=== PATIENT | female | born 1995 | race Caucasian/White ===

== ENCOUNTER 2019-02-01 02:23 | Observation (INO) | payer BC, MEDICAID ==
[2019-02-01] MEDS ORDERED: Bacitracin Oint 1 GM U/D Packet TOP ONE (02:32)
[2019-02-01] MEDS ORDERED: Ondansetron 4 MG/2 ML SDV IV ONE (02:32)
[2019-02-01] MEDS ORDERED: Sodium Chloride 0.9% 1,000 ML IV ONE (02:32)
[2019-02-01] MEDS ORDERED: LORazepam 2 MG/ML Syringe ONE (02:32)
[2019-02-01] MEDS ORDERED: LORazepam 2 MG/ML Syringe IVPUSH ONE (02:32)
[2019-02-01] MEDS ORDERED: Lidocaine 1% 30 ML SDV INJECT ONE (02:32)
[2019-02-01] MEDS: Sodium Chloride 0.9% 10 ML Syringe FLUSH PRN ×2 (02:38→05:45)
--- NOTE | 2019-02-01 02:42 | EDM.PDOC ---
ED HPI GENERAL MEDICAL PROBLEM - General Source of Information: Reports: Patient, EMS, EMS Notes Reviewed, Police, RN, RN Notes Reviewed History Limitations: Reports: Intoxication - History of Present Illness Onset: Today, Sudden Duration: Constant Location: Reports: Head, Face Quality: Reports: Sharp, Stabbing Severity: Severe Improves with: Reports: None Worsens with: Reports: None Head Pain Score (Numeric/FACES): 10 <Amber Darnell - Last Filed: 02/01/19 04:36> <Jerry Simms - Last Filed: 02/01/19 08:24> - General Stated Complaint: DRUNK AND NEEDS STITCHES IN HER HEAD Time Seen by Provider: 02/01/19 02:25 - History of Present Illness INITIAL COMMENTS - FREE TEXT/NARRATIVE: Pt to ER per EMS with laceration to the head above the vertical above the left eyebrow, about 2cm in length. Pts mother states that the patients brother was called by the bar to come and pick his sister up as she was intoxicated and "fell on her face". Unsure of LOC. Patient is crying and hysterical upon arrival. EMS states the patient ran away from them once, then cooperated getting into the ambulance. Patient states her head hurts. Rates pain 50/10. Patient is crying and asking for her dog. She states she is unsure how much she has had to drink tonight. Patient states she has difficulty with anxiety. Patient and mother state they think her tetanus is up to date. Patient states she believes it was given within the past year. (Amber Darnell) - Related Data Allergies Allergy/AdvReac Type Severity Reaction Status Date / Time No Known Allergies Allergy Verified 02/01/19 02:58 Home Meds: Home Meds . [No Known Home Meds] 11/20/15 [History] Past Medical History - Past Health History Medical/Surgical History: Denies Medical/Surgical History <Amber Darnell - Last Filed: 02/01/19 04:36> ED ROS GENERAL - Review of Systems Review Of Systems: ROS reveals no pertinent complaints other than HPI. <Amber Darnell - Last Filed: 02/01/19 04:36> ED EXAM, HEAD INJURY - Physical Exam Exam: See Below Exam Limited By: Intoxication General Appearance: Anxious, Moderate Distress Head: Facial Abrasions, Facial Lacerations, Facial Swelling, Facial Tenderness Nexus Criteria: Evidence of Intoxication, Painful Distraction Injuries. No: Posterior, Midline Cervical Tenderness, Altered Level of Consciousness, Focal Neurological Deficit Eyes: Bilateral Eye: Conjunctival Injection, PERRL (4 sluggish) Ears: Normal External Exam, Hearing Grossly Normal Nose: Normal Inspection, Nasal Tenderness Throat/Mouth: Normal Inspection, Normal Lips, Normal Teeth, Normal Gums, Normal Oropharynx, Normal Voice, No Airway Compromise Neck: Non-Tender, Full Range of Motion, Normal Alignment, Normal Inspection Respiratory: No Respiratory Distress, Lungs Clear, Normal Breath Sounds, No Accessory Muscle Use, Chest Non-Tender Cardiovascular: Normal Peripheral Pulses, Regular Rate, Rhythm, No Edema, No Gallop, No JVD, No Murmur, No Rub GI/Abdominal Exam: Normal Bowel Sounds, Soft, Non-Tender (Female) Exam: Deferred Rectal (Female) Exam: Deferred Back Exam: Full Range of Motion, Normal Inspection, NT Extremities: Normal Inspection, Normal Range of Motion, Non-Tender, No Pedal Edema, Normal Capillary Refill Neurologic: No Motor/Sensory Deficits, Alert, Other (Very anxious, hyperventilating at times) Skin: Other (2cm vertical laceration above left eyebrow.) - [place] Coma Score Best Eye Response (Conrad): (4) Open Spontaneously Best Verbal Response ([place]): (4) Confused Conversation Best Motor Response ([place]): (6) Obeys Commands Conrad Total: 14 <DarnellAmber Last Filed: 02/01/19 04:36> ED LACERATION/WOUND & ADELIA PROC - Laceration/Wound Repair Left Upper Forehead Lac/wound length in cm: 2 Appearance: Subcutaneous Distal NVT: Neuro & Vascular Intact Anesthetic Type: Local Local Anesthesia - Lidocaine (Xylocaine): 1% Plain Local Anesthetic Volume: 5cc Skin Prep: Chlorhexidine (Hibiciens) Exploration/Debridement/Repair: Wound Explored, In a Bloodless Field, Foreign Material Removed Closed with: Sutures Suture Size: 4-0 # of Sutures: 5 Suture Type: Nylon, Interrupted Drain Placement: No Sterile Dressing Applied: Provider Tetanus Status Addressed: Yes Complications: No <Amber Darnell - Last Filed: 02/01/19 04:36> Course <Amber Darnell - Last Filed: 02/01/19 04:36> <Jerry Simms - Last Filed: 02/01/19 08:24> - Vital Signs Last Recorded V/S: Last Vital Signs Temp 36.8 C 02/01/19 02:23 Pulse 145 H 02/01/19 02:23 Resp BP 128/91 H 02/01/19 02:23 Pulse Ox 99 02/01/19 02:23 - Orders/Labs/Meds Orders: Active Orders 24 hr Category Date Time Status Peripheral IV Care [RC] . DIRECTED Care 02/01/19 02:32 Active Sodium Chloride 0.9% [Normal Saline] 1,000 ml Med 02/01/19 06:30 Active IV ASDIRECTED Sodium Chloride 0.9% [Saline Flush] Med 02/01/19 02:32 Active 10 ml FLUSH ASDIRECTED PRN Peripheral IV Insertion Adult [OM.PC] Stat Oth 02/01/19 02:30 Ordered Medication Orders Sodium Chloride (Normal Saline) 1,000 mls @ 999 mls/hr IV ASDIRECTED ABUNDIO Last Admin: 02/01/19 06:10 Dose: 999 mls/hr Sodium Chloride (Saline Flush) 10 ml FLUSH ASDIRECTED PRN PRN Reason: Keep Vein Open Last Admin: 02/01/19 05:45 Dose: 10 ml Admin: 02/01/19 02:38 Dose: 10 ml Labs: Laboratory Tests 02/01/19 02/01/19 02/01/19 Range/Units 02:41 02:41 05:40 WBC 12.0 H (5.0-10.0) 10^3/uL RBC 4.98 (4.2-5.4) 10^6/uL Hgb 15.1 (12.0-16.0) g/dL Hct 43.3 (37.0-47.0) % MCV 86.9 (80-100) fL MCH 30.3 (27.0-34.0) pg MCHC 34.9 (33.0-35.0) g/dL Plt Count 329 (150-450) 10^3/uL Neut % (Auto) 61.1 (42.2-75.2) % Lymph % (Auto) 29.8 (20.5-50.1) % [place] % (Auto) 7.8 (2-8) % Eos % (Auto) 0.8 L (1.0-3.0) % Baso % (Auto) 0.5 (0.0-1.0) % Sodium 145 (135-145) mmol/L Potassium 3.1 L (3.6-5.0) mmol/L Chloride 110 (101-111) mmol/L Carbon Dioxide 21.0 (21.0-31.0) mmol/L Anion Gap 17.1 BUN 5 L (7-18) mg/dL Creatinine 0.6 (0.6-1.3) mg/dL Est Cr Clr Drug Dosing 132.34 mL/min Estimated GFR (MDRD) > 60 BUN/Creatinine Ratio 8.33 Glucose 82 (74-105) mg/dL Calcium 9.5 (8.4-10.2) mg/dl Total Bilirubin 0.5 (0.2-1.0) mg/dL AST 23 (10-42) IU/L ALT 21 (10-60) IU/L Alkaline Phosphatase 65 (42-121) IU/L Total Protein 7.2 (6.7-8.2) g/dl Albumin 4.5 (3.2-5.5) g/dl Globulin 2.7 Albumin/Globulin Ratio 1.67 Urine Color (YELLOW) Urine Appearance (CLEAR) Urine pH (5.0-9.0) Ur Specific [place] (1.005-1.030) Urine Protein (NEGATIVE) Urine Glucose (UA) (NEGATIVE) Urine Ketones (NEGATIVE) Urine Occult Blood (NEGATIVE) Urine Nitrite (NEGATIVE) Urine Bilirubin (NEGATIVE) Urine Urobilinogen (0.2-1.0) mg/dL Ur Leukocyte Esterase (NEGATIVE) Urine RBC /HPF Urine WBC (0-5/HPF) /HPF Ur Epithelial Cells /HPF Urine Bacteria (0-FEW/HPF) /HPF Urine Mucus /LPF Urinalysis Comment Urine HCG, Qual Negative Urine Opiates Screen (NEGATIVE) Ur Oxycodone Screen (NEGATIVE) Urine Methadone Screen (NEGATIVE) Ur Barbiturates Screen (NEGATIVE) U Tricyclic Antidepress (NEGATIVE) Ur Phencyclidine Scrn (NEGATIVE) Ur Amphetamine Screen (NEGATIVE) U Methamphetamines Scrn (NEGATIVE) Urine MDMA Screen (NEGATIVE) U Benzodiazepines Scrn (NEGATIVE) Urine Cocaine Screen (NEGATIVE) U Marijuana (THC) Screen (NEGATIVE) Ethyl Alcohol 282 mg/dL 02/01/19 02/01/19 Range/Units 05:40 05:40 WBC (5.0-10.0) 10^3/uL RBC (4.2-5.4) 10^6/uL Hgb (12.0-16.0) g/dL Hct (37.0-47.0) % MCV (80-100) fL MCH (27.0-34.0) pg MCHC (33.0-35.0) g/dL Plt Count (150-450) 10^3/uL Neut % (Auto) (42.2-75.2) % Lymph % (Auto) (20.5-50.1) % [place] % (Auto) (2-8) % Eos % (Auto) (1.0-3.0) % Baso % (Auto) (0.0-1.0) % Sodium (135-145) mmol/L Potassium (3.6-5.0) mmol/L Chloride (101-111) mmol/L Carbon Dioxide (21.0-31.0) mmol/L Anion Gap BUN (7-18) mg/dL Creatinine (0.6-1.3) mg/dL Est Cr Clr Drug Dosing mL/min Estimated GFR (MDRD) BUN/Creatinine Ratio Glucose (74-105) mg/dL Calcium (8.4-10.2) mg/dl Total Bilirubin (0.2-1.0) mg/dL AST (10-42) IU/L ALT (10-60) IU/L Alkaline Phosphatase (42-121) IU/L Total Protein (6.7-8.2) g/dl Albumin (3.2-5.5) g/dl Globulin Albumin/Globulin Ratio Urine Color Light yellow (YELLOW) Urine Appearance Slightly cloudy (CLEAR) Urine pH 5.5 (5.0-9.0) Ur Specific [place] <= 1.005 (1.005-1.030) Urine Protein Negative (NEGATIVE) Urine Glucose (UA) Negative (NEGATIVE) Urine Ketones Negative (NEGATIVE) Urine Occult Blood Trace-intact H (NEGATIVE) Urine Nitrite Negative (NEGATIVE) Urine Bilirubin Negative (NEGATIVE) Urine Urobilinogen 0.2 (0.2-1.0) mg/dL Ur Leukocyte Esterase Negative (NEGATIVE) Urine RBC 0-5 /HPF Urine WBC 0-5 (0-5/HPF) /HPF Ur Epithelial Cells Moderate H /HPF Urine Bacteria Many H (0-FEW/HPF) /HPF Urine Mucus Moderate H /LPF Urinalysis Comment Urine HCG, Qual Urine Opiates Screen Negative (NEGATIVE) Ur Oxycodone Screen Negative (NEGATIVE) Urine Methadone Screen Negative (NEGATIVE) Ur Barbiturates Screen Negative (NEGATIVE) U Tricyclic Antidepress Negative (NEGATIVE) Ur Phencyclidine Scrn Negative (NEGATIVE) Ur Amphetamine Screen Negative (NEGATIVE) U Methamphetamines Scrn Negative (NEGATIVE) Urine MDMA Screen Negative (NEGATIVE) U Benzodiazepines Scrn Positive H (NEGATIVE) Urine Cocaine Screen Negative (NEGATIVE) U Marijuana (THC) Screen Negative (NEGATIVE) Ethyl Alcohol mg/dL Meds: Medications Generic Name Dose Route Start Last Admin Trade Name Freq PRN Reason Stop Dose Admin Sodium Chloride 1,000 mls @ 999 mls/hr 02/01/19 06:30 02/01/19 06:10 Normal Saline IV 999 mls/hr ASDIRECTED ABUNDIO Administration Sodium Chloride 10 ml 02/01/19 02:32 02/01/19 05:45 Saline Flush FLUSH 10 ml ASDIRECTED PRN Administration Keep Vein Open Discontinued Medications Generic Name Dose Route Start Last Admin Trade Name Freq PRN Reason Stop Dose Admin Acetaminophen 650 mg 02/01/19 07:26 02/01/19 07:32 Tylenol PO 02/01/19 07:27 650 mg NOW ONE Administration Bacitracin 1 dose 02/01/19 02:32 02/01/19 02:40 Bacitracin Oint 1 Gm TOP 02/01/19 02:33 1 dose ONETIME ONE Administration Butorphanol Tartrate 2 mg 02/01/19 05:40 02/01/19 05:45 Stadol IVPUSH 02/01/19 05:41 2 mg ONETIME ONE Administration Sodium Chloride 1,000 mls @ 999 mls/hr 02/01/19 02:32 02/01/19 02:37 Normal Saline IV 02/01/19 03:32 999 mls/hr .BOLUS ONE Administration Lidocaine HCl 30 ml 02/01/19 02:32 02/01/19 02:40 Xylocaine-Mpf 1% INJECT 02/01/19 02:33 30 ml ONETIME ONE Administration Lorazepam 1 mg 02/01/19 02:32 02/01/19 02:37 Ativan IVPUSH 02/01/19 02:33 1 mg ONETIME ONE Administration Lorazepam Confirm 02/01/19 02:32 02/01/19 02:38 Ativan Administered 02/01/19 02:33 Not Given Dose 2 mg .ROUTE .STK-MED ONE Ondansetron HCl 4 mg 02/01/19 02:32 02/01/19 02:39 Zofran IV 02/01/19 02:33 4 mg ONETIME ONE Administration - Radiology Interpretation Free Text/Narrative:: Head CT: FINDINGS: Brain: NoOr evidence for acute transcortical infarct. No mass effect or midline shift. No extra-axial collection. No acute intracranial hemorrhage. Basal cisterns are patent. Ventricles: Normal. No ventriculomegaly. Bones/joints: No acute calvarial fracture. Sinuses: Visualized sinuses are unremarkable. No acute sinusitis. Mastoid air cells: Visualized mastoid air cells are unremarkable. No mastoid effusion. Soft tissues: Left forehead soft tissue swelling with laceration. No radiopaque foreign body. IMPRESSION: 1. Left forehead soft tissue swelling with laceration. No radiopaque foreign body. No acute calvarial fracture. 2. No acute intracranial hemorrhage or mass effect. Thank you for allowing us to participate in the care of your patient. Dictated and Authenticated by: Reinaldo Todd MD 02/01/2019 4:31 AM Central Time ([place] & [place]) See rad report (Amber Darnell) - Re-Assessments/Exams Free Text/Narrative Re-Assessment/Exam: 02/01/19 08:15 Patient care was taken over at shift change. A call was placed to Dr. Gonzalez regarding the patient's history, examination, lab and CT results while the patient was in the ED. Dr. Gonzalez advised to continue to monitor the patient, but avoid medications with sedation side effects. Dr. Starr accepted the patient for observation at [facility] in [place]. (Jerry Simms) Departure - Departure Time of Disposition: 04:37 Condition: Fair - Discharge Information *PRESCRIPTION DRUG MONITORING PROGRAM REVIEWED*: No *COPY OF PRESCRIPTION DRUG MONITORING REPORT IN PATIENT JASBIR: No <Amber Darnell - Last Filed: 02/01/19 04:36> - Departure Time of Disposition: 08:20 <Jerry Simms - Last Filed: 02/01/19 08:24> - Departure Clinical Impression: Concussion with less than 1 hour loss of consciousness, Laceration Contusion Qualifiers: Encounter type: initial encounter Contusion area: head Contusion of head detail : other part of head Qualified Code(s): S00.83XA - Contusion of other part of head, initial encounter Alcohol intoxication Qualifiers: Complication of substance-induced condition: with unspecified complication Qualified Code(s): F10.929 - Alcohol use, unspecified with intoxication, unspecified - Discharge Information Instructions: Concussion, Adult, [id number], Post-Concussion Syndrome, Easy- to-Read, Facial or Scalp Contusion, [id number], Alcohol Intoxication, Easy-to- Read, Head Injury, Adult, [id number], Laceration Care, Adult, [id number], Stitches, Danilo, or Adhesive Wound Closure, [id number] Forms: ED Department Discharge Additional Instructions: Keep area clean and dry May shower, pat dry May use Tylenol and/or ibuprofen as directed for headache/pain Return to the clinic in 7-10 days to have sutures removed Follow up with your primary care facility if any further problems. Care Plan Goals: Discussed the patient's history, examination, lab, CT and treatments with Dr. Starr. Dr. Starr accepted the patient for continued evaluation and management.
[2019-02-01 03:07] LABS: ANION GAP 17.1; CHLORIDE,CL 110 mmol/L (101-111); SODIUM,NA 145 mmol/L (135-145)
[2019-02-01] MEDS ORDERED: Butorphanol 2 MG/ML SDV IVPUSH ONE (05:40)
[2019-02-01] MEDS ORDERED: Sodium Chloride 0.9% 1,000 ML IV SCH (06:30)
[2019-02-01] MEDS ORDERED: Acetaminophen 325 MG Tab PO ONE (07:26)
[2019-02-01] MEDS ORDERED: Promethazine 25 MG/ML SDV IM PRN (09:15)
[2019-02-01] MEDS ORDERED: Promethazine 25 MG Tab PO PRN (09:15)
[2019-02-01] MEDS ORDERED: Ondansetron 4 MG/2 ML SDV IVPUSH PRN (09:15)
[2019-02-01] MEDS ORDERED: Ondansetron 4 MG Tab.DIS PO PRN (09:15)
[2019-02-01] MEDS ORDERED: Acetaminophen 325 MG Tab PO PRN (09:15)
[2019-02-01] MEDS ORDERED: LORazepam 1 MG Tab PO PRN (09:44)
--- NOTE | 2019-02-01 09:57 | PCM.HP ---
H&P History of Present Illness - General Date of Service: 02/01/19 Admit Problem/Dx: Admission Diagnosis/Problem Admission Diagnosis/Problem Weakness of lower extremity Source of Information: Patient, Other (Patient's ex ) History Limitations: Reports: Altered Mental Status - History of Present Illness Initial Comments - Free Text/Narative: Dottie Rajput is a 23 y.o female with history of tobacco dependence and bilateral ovarian cysts as well as alcohol abuse who was brought into the ED by family due to concerns of head laceration / fall. 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 Was off yesterday and had a pitcher of tea, which has 3 drinks of alcohol. Also reports that subsequently she went to another bar where she drank a mix of white, blue, and red whiskey mixed with sprite. She reports that she has no recollection of subsequent events until she noticed she was in the ED. Per ED provider, bar called patient's brother that she had fallen and hit her head. Brother took patient home and mother called EMS and patient was brought to the ED. In the ED, head CT was negative. Patient was given ativan, zofran, tylenol, and Stadol. Patient was noted to be weak and could not stand. Her K was 3.1. WBC was 12. EtOH level was 282. Patient reports that she got about 2 weeks ago and her got to keep their apartment and all the furnishings. She is living with her mother and cousins and there is so much noise in the house that she is unable to get enough sleep. 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 Ex- reports that they got because patient drinks too much. Does not know how many times a week she drinks. Patient reports 10/10 throbbing headache, anxiety, and shakes. She denies any other symptoms. Head Pain Score (Numeric/FACES): 10 - Related Data Allergies/Adverse Reactions: Allergies Allergy/AdvReac Type Severity Reaction Status Date / Time No Known Allergies Allergy Verified 02/01/19 08:30 Home Medications: Home Meds Ibuprofen 600 mg PO Q6HR PRN 02/01/19 [History] busPIRone [Buspar] 15 mg PO BID 02/01/19 [History] Past Medical History - Past Health History Medical/Surgical History: Denies Medical/Surgical History HEENT History: Reports: None Cardiovascular History: Reports: None Respiratory History: Reports: None Gastrointestinal History: Reports: None Genitourinary History: Reports: None Other OB/BYN History: LMP Middle of January, date unknown Musculoskeletal History: Reports: None Neurological History: Reports: None Psychiatric History: Reports: Anxiety Other Psychiatric History: states she takes a medication for anxiety but does not know what it is, mom with her does not know what the med is either. Endocrine/Metabolic History: Reports: None Hematologic History: Reports: None Immunologic History: Reports: None Oncologic (Cancer) History: Reports: None - Past Surgical History Female Surgical History: Reports: None Social & Family History - Tobacco Use Smoking Status *Q: Unknown Ever Smoked - Recreational Drug Use Recreational Drug Use: No H&P Review of Systems - Review of Systems: Review Of Systems: ROS reveals no pertinent complaints other than HPI. Free Text/Narrative: As per HPI otherwise 14 point ROS negative. Exam - Exam Exam: See Below - Vital Signs Vital Signs: Last Vital Signs Temp 97.7 F 02/01/19 08:25 Pulse 111 H 02/01/19 08:25 Resp 16 02/01/19 08:25 BP 108/75 02/01/19 08:25 Pulse Ox 100 02/01/19 09:15 Weight: 164 lb 6.4 oz - Exam General: Alert, Oriented HEENT: Conjunctiva Clear, EOMI, Hearing Intact, Mucosa Moist & [place], Other ( Laceration on left forehead with sutures in place. ) Neck: Supple, Trachea Midline Lungs: Clear to Auscultation, Normal Respiratory Effort Cardiovascular: Regular Rhythm, Tachycardia GI/Abdominal Exam: Normal Bowel Sounds, Soft, Non-Tender, No Distention Back Exam: Normal Inspection, Full Range of Motion Extremities: Normal Inspection, Normal Range of Motion Peripheral Pulses: 2+: Radial (L), Radial (R), Dorsalis Pedis (L), Dorsalis Pedis (R) Skin: Warm, Dry, Intact Neurological: Cranial Nerves Intact, Hyperreflexia Neuro Extensive - Mental Status: Alert, Oriented x3, Normal Cognition Neuro Extensive - Motor, Sensory, Reflexes: CN II-XII Intact DTR: 3+: Bicep (L), Bicep (R), Tricep (L), Tricep (R), Patella (L), Patella (R) , Achilles (L), Achilles (R) Psychiatric: Alert, Anxious - Patient Data Lab Results Last 24 hrs: Laboratory Results - last 24 hr 02/01/19 02/01/19 02/01/19 Range/Units 02:41 02:41 05:40 WBC 12.0 H (5.0-10.0) 10^3/uL RBC 4.98 (4.2-5.4) 10^6/uL Hgb 15.1 (12.0-16.0) g/dL Hct 43.3 (37.0-47.0) % MCV 86.9 (80-100) fL MCH 30.3 (27.0-34.0) pg MCHC 34.9 (33.0-35.0) g/dL Plt Count 329 (150-450) 10^3/uL Neut % (Auto) 61.1 (42.2-75.2) % Lymph % (Auto) 29.8 (20.5-50.1) % [place] % (Auto) 7.8 (2-8) % Eos % (Auto) 0.8 L (1.0-3.0) % Baso % (Auto) 0.5 (0.0-1.0) % Sodium 145 (135-145) mmol/L Potassium 3.1 L (3.6-5.0) mmol/L Chloride 110 (101-111) mmol/L Carbon Dioxide 21.0 (21.0-31.0) mmol/L Anion Gap 17.1 BUN 5 L (7-18) mg/dL Creatinine 0.6 (0.6-1.3) mg/dL Est Cr Clr Drug Dosing 132.34 mL/min Estimated GFR (MDRD) > 60 BUN/Creatinine Ratio 8.33 Glucose 82 (74-105) mg/dL Calcium 9.5 (8.4-10.2) mg/dl Total Bilirubin 0.5 (0.2-1.0) mg/dL AST 23 (10-42) IU/L ALT 21 (10-60) IU/L Alkaline Phosphatase 65 (42-121) IU/L Total Protein 7.2 (6.7-8.2) g/dl Albumin 4.5 (3.2-5.5) g/dl Globulin 2.7 Albumin/Globulin Ratio 1.67 Urine Color (YELLOW) Urine Appearance (CLEAR) Urine pH (5.0-9.0) Ur Specific [place] (1.005-1.030) Urine Protein (NEGATIVE) Urine Glucose (UA) (NEGATIVE) Urine Ketones (NEGATIVE) Urine Occult Blood (NEGATIVE) Urine Nitrite (NEGATIVE) Urine Bilirubin (NEGATIVE) Urine Urobilinogen (0.2-1.0) mg/dL Ur Leukocyte Esterase (NEGATIVE) Urine RBC /HPF Urine WBC (0-5/HPF) /HPF Ur Epithelial Cells /HPF Urine Bacteria (0-FEW/HPF) /HPF Urine Mucus /LPF Urinalysis Comment Urine HCG, Qual Negative Urine Opiates Screen (NEGATIVE) Ur Oxycodone Screen (NEGATIVE) Urine Methadone Screen (NEGATIVE) Ur Barbiturates Screen (NEGATIVE) U Tricyclic Antidepress (NEGATIVE) Ur Phencyclidine Scrn (NEGATIVE) Ur Amphetamine Screen (NEGATIVE) U Methamphetamines Scrn (NEGATIVE) Urine MDMA Screen (NEGATIVE) U Benzodiazepines Scrn (NEGATIVE) Urine Cocaine Screen (NEGATIVE) U Marijuana (THC) Screen (NEGATIVE) Ethyl Alcohol 282 mg/dL 02/01/19 02/01/19 Range/Units 05:40 05:40 WBC (5.0-10.0) 10^3/uL RBC (4.2-5.4) 10^6/uL Hgb (12.0-16.0) g/dL Hct (37.0-47.0) % MCV (80-100) fL MCH (27.0-34.0) pg MCHC (33.0-35.0) g/dL Plt Count (150-450) 10^3/uL Neut % (Auto) (42.2-75.2) % Lymph % (Auto) (20.5-50.1) % [place] % (Auto) (2-8) % Eos % (Auto) (1.0-3.0) % Baso % (Auto) (0.0-1.0) % Sodium (135-145) mmol/L Potassium (3.6-5.0) mmol/L Chloride (101-111) mmol/L Carbon Dioxide (21.0-31.0) mmol/L Anion Gap BUN (7-18) mg/dL Creatinine (0.6-1.3) mg/dL Est Cr Clr Drug Dosing mL/min Estimated GFR (MDRD) BUN/Creatinine Ratio Glucose (74-105) mg/dL Calcium (8.4-10.2) mg/dl Total Bilirubin (0.2-1.0) mg/dL AST (10-42) IU/L ALT (10-60) IU/L Alkaline Phosphatase (42-121) IU/L Total Protein (6.7-8.2) g/dl Albumin (3.2-5.5) g/dl Globulin Albumin/Globulin Ratio Urine Color Light yellow (YELLOW) Urine Appearance Slightly cloudy (CLEAR) Urine pH 5.5 (5.0-9.0) Ur Specific [place] <= 1.005 (1.005-1.030) Urine Protein Negative (NEGATIVE) Urine Glucose (UA) Negative (NEGATIVE) Urine Ketones Negative (NEGATIVE) Urine Occult Blood Trace-intact H (NEGATIVE) Urine Nitrite Negative (NEGATIVE) Urine Bilirubin Negative (NEGATIVE) Urine Urobilinogen 0.2 (0.2-1.0) mg/dL Ur Leukocyte Esterase Negative (NEGATIVE) Urine RBC 0-5 /HPF Urine WBC 0-5 (0-5/HPF) /HPF Ur Epithelial Cells Moderate H /HPF Urine Bacteria Many H (0-FEW/HPF) /HPF Urine Mucus Moderate H /LPF Urinalysis Comment Urine HCG, Qual Urine Opiates Screen Negative (NEGATIVE) Ur Oxycodone Screen Negative (NEGATIVE) Urine Methadone Screen Negative (NEGATIVE) Ur Barbiturates Screen Negative (NEGATIVE) U Tricyclic Antidepress Negative (NEGATIVE) Ur Phencyclidine Scrn Negative (NEGATIVE) Ur Amphetamine Screen Negative (NEGATIVE) U Methamphetamines Scrn Negative (NEGATIVE) Urine MDMA Screen Negative (NEGATIVE) U Benzodiazepines Scrn Positive H (NEGATIVE) Urine Cocaine Screen Negative (NEGATIVE) U Marijuana (THC) Screen Negative (NEGATIVE) Ethyl Alcohol mg/dL Result Diagrams: 02/01/19 02:41 02/01/19 02:41 - Problem List (1) Hypokalemia SNOMED Code(s): 88858896 ICD Code: E87.6 - HYPOKALEMIA Status: Acute Current Visit: Yes (2) Anxiety SNOMED Code(s): 78864014 ICD Code: F41.9 - ANXIETY DISORDER, UNSPECIFIED Status: Acute Current Visit: Yes (3) Financial difficulties Status: Acute Current Visit: Yes (4) Divorce SNOMED Code(s): 43274060 ICD Code: Z63.5 - DISRUPTION OF FAMILY BY SEPARATION AND DIVORCE Status: Acute Current Visit: Yes (5) Alcohol intoxication SNOMED Code(s): 00814379 ICD Code: F10.929 - ALCOHOL USE, UNSPECIFIED WITH INTOXICATION, UNSPECIFIED Status: Acute Current Visit: No Qualifiers: Complication of substance-induced condition: with unspecified complication Qualified Code(s): F10.929 - Alcohol use, unspecified with intoxication, unspecified (6) Contusion SNOMED Code(s): 407696626 ICD Code: T14.8XXA - OTHER INJURY OF UNSPECIFIED BODY REGION, INITIAL ENCOUNTER Status: Acute Current Visit: No Qualifiers: Encounter type: initial encounter Contusion area: head Contusion of head detail: other part of head Qualified Code(s): S00.83XA - Contusion of other part of head, initial encounter (7) Laceration SNOMED Code(s): 581246082 ICD Code: DPF1723 - Status: Acute Current Visit: No Problem List Initiated/Reviewed/Updated: Yes Orders Last 24hrs: Active Orders 24 hr Category Date Time Status Patient Status [ADT] Routine ADT 02/01/19 09:15 Active Blood Glucose Check, Bedside [RC] TIDMEALS Care 02/01/19 09:15 Active CIWAA Assessment [RC] ASDIRECTED Care 02/01/19 09:43 Ordered Intake and Output [RC] QSHIFT Care 02/01/19 09:17 Active Oxygen Therapy [RC] PRN Care 02/01/19 09:15 Active Peripheral IV Care [RC] ,21 Care 02/01/19 02:32 Active Up With Assistance [RC] ASDIRECTED Care 02/01/19 09:15 Active VTE/DVT Education [RC] PER UNIT ROUTINE Care 02/01/19 09:15 Active Vital Signs [RC] Q4H Care 02/01/19 09:15 Active PT Evaluation and Treatment [CONS] Routine Cons 02/01/19 09:39 Active Regular Diet [DIET] Diet 02/01/19 Breakfast Active Acetaminophen [Tylenol] Med 02/01/19 09:15 Ordered 650 mg PO Q6H PRN Bisacodyl [Dulcolax] Med 02/01/19 09:15 Ordered 5 mg PO DAILY PRN Docusate Sodium [Colace] Med 02/01/19 09:15 Ordered 100 mg PO BID PRN Docusate Sodium/Sennosides [Senna Plus] Med 02/01/19 09:15 Ordered 1 tab PO BEDTIME PRN Ibuprofen [Motrin] Med 02/01/19 09:15 Ordered 600 mg PO Q6H PRN LORazepam [Ativan] Med 02/01/19 09:44 Ordered 1 mg PO Q6H PRN Nicotine [Habitrol] Med 02/01/19 09:30 Ordered 21 mg TRDERM DAILY Ondansetron [Zofran ODT] Med 02/01/19 09:15 Ordered 4 mg PO Q6H PRN Ondansetron [Zofran] Med 02/01/19 09:15 Ordered 4 mg IVPUSH Q6H PRN Polyethylene Glycol 3350 [MiraLAX] Med 02/01/19 09:15 Ordered 17 gm PO DAILY PRN Potassium Chloride [Klor-Con 10] Med 02/01/19 09:40 Once 40 meq PO ONETIME ONE Promethazine [Phenergan] Med 02/01/19 09:15 Ordered 12.5 mg IM Q6H PRN Promethazine [Phenergan] Med 02/01/19 09:15 Ordered 25 mg PO Q6H PRN Sodium Chloride 0.9% [Saline Flush] Med 02/01/19 02:32 Active 10 ml FLUSH ASDIRECTED PRN busPIRone [Buspar] Med 02/01/19 21:00 Ordered 15 mg PO BID Peripheral IV Insertion Adult [OM.PC] Stat Oth 02/01/19 02:30 Ordered Resuscitation Status Routine Resus Stat 02/01/19 09:15 Ordered Medication Orders Acetaminophen (Tylenol) 650 mg PO Q6H PRN PRN Reason: Pain Bisacodyl (Dulcolax) 5 mg PO DAILY PRN PRN Reason: Constipation Buspirone HCl (Buspar) 15 mg PO BID ABUNDIO Docusate Sodium (Colace) 100 mg PO BID PRN PRN Reason: Constipation Ibuprofen (Motrin) 600 mg PO Q6H PRN PRN Reason: Pain (mild 1-3) Nicotine (Habitrol) 21 mg TRDERM DAILY ABUNDIO Ondansetron HCl (Zofran Odt) 4 mg PO Q6H PRN PRN Reason: nausea, able to take PO Ondansetron HCl (Zofran) 4 mg IVPUSH Q6H PRN PRN Reason: Nausea/Vomiting Polyethylene Glycol (Miralax) 17 gm PO DAILY PRN PRN Reason: Constipation Potassium Chloride (Klor-Con 10) 40 meq PO ONETIME ONE Stop: 02/01/19 09:41 Promethazine HCl (Phenergan) 25 mg PO Q6H PRN PRN Reason: nausea, able to take PO Promethazine HCl (Phenergan) 12.5 mg IM Q6H PRN PRN Reason: Nausea/Vomiting Senna/Docusate Sodium (Senna Plus) 1 tab PO BEDTIME PRN PRN Reason: Constipation Sodium Chloride (Saline Flush) 10 ml FLUSH ASDIRECTED PRN PRN Reason: Keep Vein Open Last Admin: 02/01/19 05:45 Dose: 10 ml Admin: 02/01/19 02:38 Dose: 10 ml Assessment/Plan Comment:: #Weakness: 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 Likely due to alcohol intoxication coupled with need for benzos and also receiving stadol for pain. - PT ordered. - Fall precautions. #Alcohol intoxication: BAL of 282. States she drinks only on Wednesdays but ex- reports she drinks a lot more than that. - CIWA protocol - [place] for CIWA protocol. - Alcohol cessation counseling provided. #Hypokalemia: does not appear malnourished. - Replete potassium - Check Mag and phos, if normal, can be started on regular diet. #Anxiety: - Resume buspar #Financial difficulties/Divorce: currently living with her mum. - Case management to assist in accessing resources available to her. Full Code. DVT PPx: low risk GI PPx: Regular diet.
[2019-02-01] MEDS ORDERED: Bisacodyl 5 MG Tab PO PRN (11:00)
[2019-02-01] MEDS ORDERED: Docusate Sodium 100 MG Cap PO PRN (11:00)
[2019-02-01] MEDS ORDERED: Potassium Chloride 10 MEQ Tab.ER PO ONE (11:00)
[2019-02-01] MEDS ORDERED: Polyethylene Glycol 3350 Powder 17 GM Packet PO PRN (11:00)
[2019-02-01] MEDS: Nicotine 21 MG/24 Hr Patch TRDERM SCH (11:08)
[2019-02-01] MEDS: Ibuprofen 600 MG Tab PO PRN ×2 (13:51→20:29)
[2019-02-01] MEDS: Acetaminophen 325 MG Tab PO PRN (16:38)
[2019-02-02] MEDS: Acetaminophen 325 MG Tab PO PRN (04:41)
[2019-02-02 08:36] LABS: ANION GAP 13.7; CHLORIDE,CL 105 mmol/L (101-111); SODIUM,NA 137 mmol/L (135-145)
[2019-02-02] MEDS: Ibuprofen 600 MG Tab PO PRN (09:20)
[2019-02-02] MEDS: Nicotine 21 MG/24 Hr Patch TRDERM SCH (09:23)
[2019-02-02 11:34] VITALS: BP 110/72
--- NOTE | 2019-02-02 12:07 | PCM.DCSUM1 ---
Discharge Summary - Hospital Course Free Text/Narrative:: Dottie Rajput is a 23 y.o female with history of tobacco dependence and bilateral ovarian cysts as well as alcohol abuse who was brought into the ED by family due to concerns of head laceration 2/2 fall. She had been drinking a pitcher of tea as well as a mix of green, white, and red whiskey with sprite. She was admitted for weakness. She was kept on CIWA protocol. Pain was managed with tylenol and ibuprofen. She was counseled on the importance of alcohol cessation. Stated that she will not be drinking anymore. Her BAL in the ED was 282. K was 3.1. This was replaced orally and came back at 3.7. She was able to ambulate independently in the hallways. She was discharged to follow up with PCP. HPI Initial Comments: Dottie Rajput is a 23 y.o female with history of tobacco dependence and bilateral ovarian cysts as well as alcohol abuse who was brought into the ED by family due to concerns of head laceration 2/2 fall. 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 Was off yesterday and had a pitcher of tea, which has 3 drinks of alcohol. Also reports that subsequently she went to another bar where she drank a mix of white, blue, and red whiskey mixed with sprite. She reports that she has no recollection of subsequent events until she noticed she was in the ED. Per ED provider, bar called patient's brother that she had fallen and hit her head. Brother took patient home and mother called EMS and patient was brought to the ED. In the ED, head CT was negative. Patient was given ativan, zofran, tylenol, and Stadol. Patient was noted to be weak and could not stand. Her K was 3.1. WBC was 12. EtOH level was 282. Patient reports that she got about 2 weeks ago and her got to keep their apartment and all the furnishings. She is living with her mother and cousins and there is so much noise in the house that she is unable to get enough sleep. 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 Ex- reports that they got because patient drinks too much. Does not know how many times a week she drinks. Patient reports 10/10 throbbing headache, anxiety, and shakes. She denies any other symptoms. Diagnosis: Stroke: No - Discharge Data Discharge Date: 02/02/19 Discharge Disposition: Home, Self-Care 01 Condition: Good - Discharge Diagnosis/Problem(s) (1) Hypokalemia SNOMED Code(s): 74726066 ICD Code: E87.6 - HYPOKALEMIA Status: Acute Current Visit: Yes (2) Anxiety SNOMED Code(s): 42814625 ICD Code: F41.9 - ANXIETY DISORDER, UNSPECIFIED Status: Acute Current Visit: Yes (3) Financial difficulties Status: Acute Current Visit: Yes (4) Divorce SNOMED Code(s): 39223722 ICD Code: Z63.5 - DISRUPTION OF FAMILY BY SEPARATION AND DIVORCE Status: Acute Current Visit: Yes (5) Alcohol intoxication SNOMED Code(s): 79818279 ICD Code: F10.929 - ALCOHOL USE, UNSPECIFIED WITH INTOXICATION, UNSPECIFIED Status: Acute Current Visit: No Qualifiers: Complication of substance-induced condition: with unspecified complication Qualified Code(s): F10.929 - Alcohol use, unspecified with intoxication, unspecified (6) Contusion SNOMED Code(s): 794067462 ICD Code: T14.8XXA - OTHER INJURY OF UNSPECIFIED BODY REGION, INITIAL ENCOUNTER Status: Acute Current Visit: No Qualifiers: Encounter type: initial encounter Contusion area: head Contusion of head detail: other part of head Qualified Code(s): S00.83XA - Contusion of other part of head, initial encounter (7) Laceration SNOMED Code(s): 959958251 ICD Code: RTG6007 - Status: Acute Current Visit: No - Patient Summary/Data Consults: Consultations 02/01/19 09:39 PT Evaluation and Treatment [CONS] Routine - Patient Instructions Diet: Regular Diet as Tolerated Activity: Apply Ice Driving: May Drive Today Showering/Bathing: May Shower Wound/Incision Care: Keep Operative Site/Wound Site Clean and Dry Notify Provider of: Fever, Increased Pain, Swelling and Redness, Drainage - Discharge Plan *PRESCRIPTION DRUG MONITORING PROGRAM REVIEWED*: No *COPY OF PRESCRIPTION DRUG MONITORING REPORT IN PATIENT JASBIR: No Prescriptions/Med Rec: Acetaminophen [Tylenol] 650 mg PO Q6H PRN #60 tablet PRN Reason: Pain Home Medications: Home Meds Ibuprofen 600 mg PO Q6HR PRN 02/01/19 [History] busPIRone [Buspar] 15 mg PO BID 02/01/19 [History] Acetaminophen [Tylenol] 650 mg PO Q6H PRN #60 tablet 02/02/19 [Rx] Nicotine [Habitrol] 21 mg TRDERM DAILY patch 02/02/19 [Rx] Patient Handouts: Concussion, Adult, Fmou-hb-Mtyc, Post-Concussion Syndrome, Hmxz-go-Kuit, Facial or Scalp Contusion, Kcpv-zh-Vbhs, Alcohol Intoxication, Zsgt-af-Aoda, Head Injury, Adult, Bsbb-xg-Khnp, Acetaminophen tablets or caplets , Laceration Care, Adult, Lgox-vh-Uzsa, Stitches, [place], or Adhesive Wound Closure, Ictb-hz-Djft Referrals: PCP,None [Primary Care Provider] - - Discharge Summary/Plan Comment DC Time >30 min.: Yes - General Info Date of Service: 02/02/19 Admission Dx/Problem (Free Text: Admission Diagnosis/Problem Admission Diagnosis/Problem Weakness of lower extremity Subjective Update: No acute events overnight. Reports that she is doing okay. Has been able to go to the shower by herself. Reports that pain is improved with tylenol and ibuprofen. Functional Status: Reports: Pain Controlled - Review of Systems General: Reports: No Symptoms HEENT: Reports: No Symptoms Pulmonary: Reports: No Symptoms Cardiovascular: Reports: No Symptoms Gastrointestinal: Reports: No Symptoms Genitourinary: Reports: No Symptoms Musculoskeletal: Reports: No Symptoms Skin: Reports: No Symptoms Neurological: Reports: No Symptoms Psychiatric: Reports: No Symptoms - Patient Data Vitals - Most Recent: Last Vital Signs Temp 99.4 F 02/02/19 11:00 Pulse 63 02/02/19 11:00 Resp 18 02/02/19 11:00 BP 110/72 02/02/19 11:00 Pulse Ox 99 02/02/19 11:00 Weight - Most Recent: 164 lb 6.4 oz I&O - Last 24 hours: Intake & Output 02/01/19 02/02/19 02/02/19 22:59 06:59 14:59 Intake Total 350 Balance 350 Lab Results - Last 24 hrs: Laboratory Results - last 24 hr 02/01/19 02/01/19 02/02/19 Range/Units 17:00 21:06 07:24 Sodium (135-145) mmol/L Potassium (3.6-5.0) mmol/L Chloride (101-111) mmol/L Carbon Dioxide (21.0-31.0) mmol/L Anion Gap BUN (7-18) mg/dL Creatinine (0.6-1.3) mg/dL Est Cr Clr Drug Dosing mL/min Estimated GFR (MDRD) Glucose (74-105) mg/dL POC Glucose 79 75 72 (70-105) mg/dl Calcium (8.4-10.2) mg/dl Phosphorus (2.5-4.6) mg/dL 02/02/19 02/02/19 Range/Units 08:00 10:49 Sodium 137 (135-145) mmol/L Potassium 3.7 (3.6-5.0) mmol/L Chloride 105 (101-111) mmol/L Carbon Dioxide 22.0 (21.0-31.0) mmol/L Anion Gap 13.7 BUN 7 (7-18) mg/dL Creatinine 0.6 (0.6-1.3) mg/dL Est Cr Clr Drug Dosing 121.66 mL/min Estimated GFR (MDRD) > 60 Glucose 85 (74-105) mg/dL POC Glucose 95 (70-105) mg/dl Calcium 9.0 (8.4-10.2) mg/dl Phosphorus 3.3 (2.5-4.6) mg/dL Med Orders - Current: Current Medications Acetaminophen (Tylenol) 650 mg PO Q4H PRN PRN Reason: Pain Last Admin: 02/02/19 04:41 Dose: 650 mg Bisacodyl (Dulcolax) 5 mg PO DAILY PRN PRN Reason: Constipation (use second) Docusate Sodium (Colace) 100 mg PO BID PRN PRN Reason: Constipation Ibuprofen (Motrin) 600 mg PO Q6HR PRN PRN Reason: Pain (moderate 4-6) Last Admin: 02/02/19 09:20 Dose: 600 mg Lorazepam (Ativan) 1 mg PO Q6HR PRN; Protocol PRN Reason: Other Last Admin: 02/01/19 11:07 Dose: 1 mg Nicotine (Habitrol) 21 mg TRDERM DAILY [facility] Last Admin: 02/02/19 09:23 Dose: 21 mg Ondansetron HCl (Zofran Odt) 4 mg PO Q6H PRN PRN Reason: nausea, can take PO, use first Ondansetron HCl (Zofran) 4 mg IVPUSH Q6HR PRN PRN Reason: Nausea/Vomiting, use first Buspirone 15 Mg Tab (Own Med) 1 each PO BID ABUNDIO Last Admin: 02/02/19 09:24 Dose: 1 each Polyethylene Glycol (Miralax) 17 gm PO DAILY PRN PRN Reason: Constipation (use first) Promethazine HCl (Phenergan) 25 mg PO Q6HR PRN PRN Reason: nausea, can take PO, use 2nd Promethazine HCl (Phenergan) 12.5 mg IM Q6HR PRN PRN Reason: Nausea/Vomiting, use 2nd Senna/Docusate Sodium (Senna Plus) 1 tab PO BEDTIME PRN PRN Reason: Constipation Sodium Chloride (Saline Flush) 10 ml FLUSH ASDIRECTED PRN PRN Reason: Keep Vein Open Last Admin: 02/01/19 05:45 Dose: 10 ml Discontinued Medications Acetaminophen (Tylenol) 650 mg PO NOW ONE Stop: 02/01/19 07:27 Last Admin: 02/01/19 07:32 Dose: 650 mg Acetaminophen (Tylenol) 650 mg PO Q6HR PRN PRN Reason: Pain (mild 1-3) Last Admin: 02/01/19 11:07 Dose: 650 mg Bacitracin (Bacitracin Oint 1 Gm) 1 dose TOP ONETIME ONE Stop: 02/01/19 02:33 Last Admin: 02/01/19 02:40 Dose: 1 dose Butorphanol Tartrate (Stadol) 2 mg IVPUSH ONETIME ONE Stop: 02/01/19 05:41 Last Admin: 02/01/19 05:45 Dose: 2 mg Sodium Chloride (Normal Saline) 1,000 mls @ 999 mls/hr IV .BOLUS ONE Stop: 02/01/19 03:32 Last Admin: 02/01/19 02:37 Dose: 999 mls/hr Sodium Chloride (Normal Saline) 1,000 mls @ 999 mls/hr IV ASDIRECTED [facility] Last Admin: 02/01/19 06:10 Dose: 999 mls/hr Lidocaine HCl (Xylocaine-Mpf 1%) 30 ml INJECT ONETIME ONE Stop: 02/01/19 02:33 Last Admin: 02/01/19 02:40 Dose: 30 ml Lorazepam (Ativan) 1 mg IVPUSH ONETIME ONE Stop: 02/01/19 02:33 Last Admin: 02/01/19 02:37 Dose: 1 mg Lorazepam (Ativan) Confirm Administered Dose 2 mg .ROUTE .STK-MED ONE Stop: 02/01/19 02:33 Last Admin: 02/01/19 02:38 Dose: Not Given Ondansetron HCl (Zofran) 4 mg IV ONETIME ONE Stop: 02/01/19 02:33 Last Admin: 02/01/19 02:39 Dose: 4 mg Potassium Chloride (Klor-Con 10) 40 meq PO ONETIME ONE Stop: 02/01/19 11:01 Last Admin: 02/01/19 11:07 Dose: 40 meq - Exam General: Reports: Alert, Oriented HEENT: Reports: Pupils Equal, Pupils Reactive, EOMI, Mucous Membr. Moist/Mack, Other (left forehead laceration with sutures in place, c/d/i. ) Lungs: Reports: Clear to Auscultation, Normal Respiratory Effort Cardiovascular: Reports: Regular Rate, Regular Rhythm GI/Abdominal Exam: Normal Bowel Sounds, Soft, Non-Tender, No Organomegaly Extremities: Normal Inspection, Normal Range of Motion, Non-Tender, No Pedal Edema Skin: Reports: Warm, Dry, Intact Wound/Incisions: Reports: Healing Well Neurological: Reports: No New Focal Deficit Psy/Mental Status: Reports: Alert, Normal Affect, Normal Mood
== END 2019-02-02 12:55 | disposition home or self-care (01) ==
LOC: DL.ED 02:23 → DL.MS 08:21 → UNDOADMOB 08:21 → DL.MS 09:15
PROVIDERS: ADMIT Internal Medicine; ATTEND Internal Medicine
DX: E87.6 Hypokalemia (principal); F41.9 Anxiety disorder, unspecified; F10.929 Alcohol use, unspecified with intoxication, unspecified; T14.8XXA Other injury of unspecified body region, initial encounter; Z63.5 Disruption of family by separation and divorce; Z79.899 Other long term (current) drug therapy
CPT/HCPCS: 12011; 36415; 70450; 80048; 80053; 80305; 81001; 81025; 82962; 83735; 84100; 85025; 96361; 96374; 96375; 99285; A9270; G0480; J0595; J2001; J2060; J2405; J7030

== ENCOUNTER 2024-09-13 18:07 | Emergency (ER) | payer BC ==
[2024-09-13 20:01] LABS: BASOPHILS PERCENT AUTO 0.3 % (0.0-1.0); EOSINOPHILS PERCENT AUTO 1.6 % (1.0-3.0); HEMATOCRIT 42.5 % (37.0-47.0); HEMOGLOBIN 14.5 g/dL (12.0-16.0); LYMPHOCYTES PERCENT AUTO 19.6 % (20.5-50.1); MEAN CORPUSCULAR HEMOGLOBIN 29.8 pg (27.0-34.0); MEAN CORPUSCULAR HGB CONC 34.1 g/dL (33.0-35.0); MEAN CORPUSCULAR VOLUME 87.4 fL (80-100); MONOCYTES PERCENT AUTO 6.4 % (2-8); NEUTROPHILS PERCENT AUTO 72.1 % (42.2-75.2); PLATELET COUNT,PLT 338 10^3/uL (150-450); RED BLOOD CELL COUNT 4.86 10^6/uL (4.2-5.4); WHITE BLOOD CELL COUNT,WBC 9.2 10^3/uL (5.0-10.0)
[2024-09-13 20:02] VITALS: BP 112/74; PULSE 100
[2024-09-13 20:25] LABS: A/G RATIO 1.2; ALANINE AMINOTRANSFERASE,ALT 29 U/L (14-59); ALBUMIN 4.1 g/dL (3.4-5.0); ALKALINE PHOSPHATASE 116 U/L (46-116); ANION GAP 11.6 mEq/L (7-13); ASPARTATE AMNIOTRANSFERASE,AST 17 U/L (15-37); BILIRUBIN TOTAL 0.4 mg/dL (0.2-1.0); BLOOD UREA NITROGEN,BUN 10 mg/dL (7-18); BUN/CREATININE RATIO 11.1 (No establ ref range); CALCIUM 9.6 mg/dL (8.5-10.1); CARBON DIOXIDE,CO2 29 mmol/L (21-32); CHLORIDE,CL 103 mmol/L (98-107); ESTIMATED GFR 89 mL/min (>=60); GLUCOSE RANDOM 88 mg/dL (70-99); MAGNESIUM 1.9 mg/dL (1.8-2.4); POTASSIUM,K 3.6 mmol/L (3.5-5.1); PROTEIN TOTAL,TP 7.4 g/dL (6.4-8.2); SODIUM,NA 140 mmol/L (136-145)
[2024-09-13 20:26] LABS: AMPHETAMINES,URINE NEGATIVE (NEGATIVE); BARBITURATES,URINE NEGATIVE (NEGATIVE); BENZODIAZEPINE,URINE NEGATIVE (NEGATIVE); MDMA (ECSTASY), URINE NEGATIVE (NEGATIVE); METHADONE,URINE NEGATIVE (NEGATIVE); METHAMPHETAMINES,URINE NEGATIVE (NEGATIVE); OPIATES,URINE NEGATIVE (NEGATIVE); OXYCODONE,URINE NEGATIVE (NEGATIVE); PHENCYCLIDINE,URINE NEGATIVE (NEGATIVE); TCA,URINE POSITIVE (NEGATIVE)
[2024-09-13] MEDS ORDERED: Lidocaine 1% with EPINEPHrine 1:100,000 20 ML MDV INJECT ONE (20:59)
== END 2024-09-13 21:25 | disposition home or self-care (01) ==
LOC: DL.ED 18:07
DX: R56.9 Unspecified convulsions (principal); Z79.899 Other long term (current) drug therapy
CPT/HCPCS: 36415; 80053; 80305-QW; 82947; 83735; 85025; 99284